=== PATIENT | male | born 1990 ===

== ENCOUNTER 2024-06-07 20:37 | Emergency (ER) | payer OTHER, SELFPAY ==
[2024-06-07 20:41] VITALS: BP 143/78; PULSE 75; TEMP 37.1; O2SAT 98; BMI 25.1
--- NOTE | 2024-06-07 20:49 | ED.NAVMDI1 ---
HPI - Nausea/Vomiting/Diarrhea General Chief complaint: Nausea/Vomiting/Diarrhea Stated complaint: vomiting Time Seen by Provider: 06/07/24 20:44 Source: patient Mode of arrival: walk-in Limitations: no limitations History of Present Illness HPI Narrative: 34-year-old male presents for nausea vomiting and diarrhea of 24 hours duration. He states he has not been around anybody who has been ill. No hematemesis or hematochezia. He states he had a fever this afternoon. He has not complained to me of abdominal pain. Related Data Previous Rx's ?Medication ?Instructions ?Recorded ondansetron 4 mg disintegrating 4 mg PO Q6H PRN nausea and 06/07/24 tablet vomiting #20 tabs Allergies Allergy/AdvReac Type Severity Reaction Status Date / Time bacitracin (From Neosporin Allergy Rash Verified 06/07/24 20:41 ([id number])) neomycin (From Neosporin Allergy Rash Verified 06/07/24 20:41 ([id number])) polymyxin B (From Neosporin Allergy Rash Verified 06/07/24 20:41 ([id number])) Review of Systems ROS Narrative A ten point review of systems is negative except as noted above. PFSH PFSH Social History Little interest or pleasure in doing things: not at all Feeling down, depressed, or hopeless: not at all Exam Narrative Exam Narrative: Nurses note and vital signs reviewed and patient is not hypoxic. General: The patient appears well and in no apparent distress. Patient is resting comfortably on cart. Skin: Warm, dry, no pallor noted. There is no rash noted. Head: Normocephalic, atraumatic Eye: Normal conjunctiva, no drainage Ears, Nose, Mouth, and Throat: oral mucosa is moist. Nares patent. Cardiovascular: Regular Rate and Rhythm Respiratory: Patient is in no distress, no accessory muscle use, lungs are clear to auscultation, no wheezing, rales or rhonchi Back: non-tender GI: Soft and nontender Musculoskeletal: The patient has no evidence of calf tenderness, no pitting edema, symmetrical pulses noted bilaterally Neurological: A&O, normal speech Psychiatric: Cooperative Constitutional Vital Signs, click to edit/add: Last Vital Signs Temp 98.7 F 06/07/24 20:41 Pulse 75 06/07/24 20:41 Resp 18 06/07/24 20:41 BP 143/78 H 06/07/24 20:41 Pulse Ox 98 06/07/24 20:41 O2 Del Method Room Air 06/07/24 20:41 Course Vital Signs Vital signs: Vital Signs Temperature 98.7 F 06/07/24 20:41 Pulse Rate 75 06/07/24 20:41 Respiratory Rate 18 06/07/24 20:41 Blood Pressure 143/78 H 06/07/24 20:41 Pulse Oximetry 98 06/07/24 20:41 Oxygen Delivery Method Room Air 06/07/24 20:41 Temperature 98.7 F 06/07/24 20:41 Pulse Rate 75 06/07/24 20:41 Respiratory Rate 18 06/07/24 20:41 Blood Pressure 143/78 H 06/07/24 20:41 Pulse Oximetry 98 06/07/24 20:41 Oxygen Delivery Method Room Air 06/07/24 20:41 MDM - Nausea/Vomiting/Diarrhea MDM Narrative Medical decision making narrative: Blood work is normal. He was given IV fluids and Zofran and is tolerating p.o. liquids. He is able to be discharged home with a prescription for Zofran. Treatment diagnosis and follow-up were discussed with the patient. Differential Diagnosis Differential diagnosis: Likely food poisoning, gastroenteritis and dehydration Lab Data Attestation: I reviewed the patient's lab results. Labs: Lab Results 06/07/24 Range/Units 20:55 WBC 9.3 (4.0-11.0) 10^3/uL RBC 5.11 (4.70-6.10) 10^6/uL Hgb 15.2 (14.0-18.0) g/dL Hct 44.5 (42.0-54.0) % MCV 87.1 (80.0-94.0) fL MCH 29.7 (25.9-34.0) pg MCHC 34.2 (29.9-35.2) g/dL RDW 12.8 (11.0-15.0) % Plt Count 211 (150-450) 10^3/uL MPV 10.4 (9.5-13.5) fL Neut % (Auto) 83.6 H (43.0-75.0) % Lymph % (Auto) 8.8 L (20.5-60.0) % Phillips % (Auto) 7.2 (1.7-12.0) % Eos % (Auto) 0.1 L (0.9-7.0) % Baso % (Auto) 0.2 (0.2-2.0) % Neut # (Auto) 7.8 H (1.4-6.5) 10^3/uL Lymph # (Auto) 0.8 L (1.2-3.8) 10^3/uL Phillips # (Auto) 0.7 (0.3-0.8) 10^3/uL Eos # (Auto) 0.0 (0.0-0.7) 10^3/uL Baso # (Auto) 0.0 (0.0-0.1) 10^3/uL Abs Immat Gran (auto) 0.01 (0.00-0.03) 10^3/uL Imm/Tot Granulo (auto) 0.1 (0.0-0.5) % Sodium 138 (136-145) mmol/L Potassium 4.0 (3.5-5.1) mmol/L Chloride 101 (98-107) mmol/L Carbon Dioxide 30.2 (21.0-32.0) mmol/L Anion Gap 10.8 BUN 19.0 H (7.0-18.0) mg/dL Creatinine 1.15 (0.70-1.30) mg/dL Est GFR ( Amer) >60 (>=60 mL/min/1.73m^2) Est GFR (Non-Af Amer) >60 (>=60 mL/min/1.73m^2) BUN/Creatinine Ratio 16.5 Glucose 115 H (74-106) mg/dL Calcium 9.1 (8.5-10.1) mg/dL Discharge Plan Discharge Chief Complaint: Nausea/Vomiting/Diarrhea Clinical Impression: Nausea, vomiting, and diarrhea Patient Disposition: Home, Self-Care Time of Disposition Decision: 22:26 Condition: Good Mode of Transportation: Private Vehicle Prescriptions / Home Meds: New ondansetron 4 mg tablet,disintegrating 4 mg PO Q6H PRN (Reason: nausea and vomiting) Qty: 20 0RF Print Language: [place] Instructions: Acute Nausea and Vomiting (ED) Referrals: Eric Nieto MD [Primary Care Provider] - 1 week
[2024-06-07] MEDS: 0.9 % SODIUM CHLORIDE 1,000 ML 1000 ML IV (21:04)
[2024-06-07] MEDS: ONDANSETRON PF 4 MG/2 ML VIAL IV (21:05)
[2024-06-07 21:09] LABS: Basophils Percent Auto 0.2 % (0.2-2.0); Eosinophils Percent Auto 0.1 % (0.9-7.0); Hematocrit 44.5 % (42.0-54.0); Hemoglobin 15.2 g/dL (14.0-18.0); Immature Granulocytes Abs Auto 0.01 10^3/uL (0.00-0.03); Immature Granulocytes Pct Auto 0.1 % (0.0-0.5); Lymphocytes Absolute Auto 0.8 10^3/uL (1.2-3.8); Lymphocytes Percent Auto 8.8 % (20.5-60.0); Mean Corpuscular HGB Conc 34.2 g/dL (29.9-35.2); Mean Corpuscular Hemoglobin 29.7 pg (25.9-34.0); Mean Corpuscular Volume 87.1 fL (80.0-94.0); Mean Platelet Volume 10.4 fL (9.5-13.5); Monocytes Absolute Auto 0.7 10^3/uL (0.3-0.8); Monocytes Percent Auto 7.2 % (1.7-12.0); Neutrophils Absolute Auto 7.8 10^3/uL (1.4-6.5); Neutrophils Percent Auto 83.6 % (43.0-75.0); Platelet Count 211 10^3/uL (150-450); Red Blood Count 5.11 10^6/uL (4.70-6.10); Red Cell Distribution Width 12.8 % (11.0-15.0); White Blood Count 9.3 10^3/uL (4.0-11.0)
[2024-06-07 21:28] LABS: Anion Gap 10.8; BUN Creatinine Ratio 16.5; Calcium 9.1 mg/dL (8.5-10.1); Carbon Dioxide 30.2 mmol/L (21.0-32.0); Chloride 101 mmol/L (98-107); Estimated GFR (African America >60 (>=60 mL/min/1.73m^2); Estimated GFR (Non-African Ame >60 (>=60 mL/min/1.73m^2); Glucose 115 mg/dL (74-106); Sodium 138 mmol/L (136-145)
[2024-06-07 22:50] VITALS: BP 116/72; PULSE 72; O2SAT 98
== END 2024-06-07 22:50 | disposition home or self-care (01) ==
PROVIDERS: Emergency Provider Emergency Medicine; PCP Family Medicine
DX: R11.2 Nausea with vomiting, unspecified (principal); R19.7 Diarrhea, unspecified
CPT/HCPCS: 36415; 80048; 85025; 96361; 96374; 99284; J2405